=== PATIENT | female | born 1990 | race Two or more races ===

== ENCOUNTER 2022-01-14 14:25 | Outpatient (CLI) | payer OTHER | END 2022-01-14 15:45 | disposition home or self-care (01) | LOC: PRENATAL 14:25 | PROVIDERS: ATTEND Obstetrics & Gynecology Maternal & Fetal Medicine | DX: O35.0XX0 Maternal care for (suspected) central nervous system malformation in fetus, not applicable or unspecified (principal); Z3A.23 23 weeks gestation of pregnancy; O35.3XX0 Maternal care for (suspected) damage to fetus from viral disease in mother, not applicable or unspecified; Z88.0 Allergy status to penicillin ==

== ENCOUNTER 2022-04-21 13:15 | Inpatient (IN) | payer OTHER ==
[~2022-04-21] VITALS: Ht 152.4 cm; Wt 67.1 kg
[2022-04-26] MEDS ORDERED: PRENATAL CAPLE1 EAC1 PO (04:02)
== END 2022-04-28 15:32 | disposition home or self-care (01) | DRG 807 ==
LOC: LDR 04-26 03:47 → OB/GYN 04-26 08:14
PROVIDERS: ADMIT Obstetrics & Gynecology; ATTEND Obstetrics & Gynecology
PROC: 10E0XZZ Delivery of Products of Conception, External Approach (ICD-10-PCS; principal; 2022-04-26)
PROC: 0HQ9XZZ Repair Perineum Skin, External Approach (ICD-10-PCS; 2022-04-26)
PROC: 4A1HXCZ Monitoring of Products of Conception, Cardiac Rate, External Approach (ICD-10-PCS; 2022-04-26)
DX: O70.0 First degree perineal laceration during delivery (principal); Z37.0 Single live birth; Z3A.38 38 weeks gestation of pregnancy; Z20.822 Contact with and (suspected) exposure to COVID-19